=== PATIENT | female | born 1980 | race African-American/Black ===

== ENCOUNTER 2017-06-09 09:52 | Day surgery (SDC) | payer OTHER ==
--- NOTE | 2017-06-09 12:18 | Operative Note ---
Colonoscopy (Hal) Procedure date: 06/09/17 Date of : [birth year] Procedure:Colonoscopy Colonoscopy with cold biopsies and hemorrhoid band ligation Indications: Mrs. Jackson is a 36-year-old female who reportedly has ulcerative colitis and has been on Lialda. Her colonoscopy in [address] Samuel De León was described as spastic in the sigmoid colon with some boggy mucosa. The biopsies of this area showed nonspecific colitis. Dr. De León treated her with prednisone 5 mg every other day for nearly 2 years. She was also on Lialda and does state that this therapy normalized her bowel movements. She continues to have issues with diarrhea, bloating, gassiness and lower abdominal discomfort with some bowel urgency. This is often meal related. She had laparoscopic cholecystectomy in 2014. The patient reports no family history of colon cancer, colitis or Crohn's disease. She does not know her paternal biologic side. Performing Provider: Vinod Hong MD Referrring Provider: Diamante Vital M.D. Sedation: Fentanyl 200 mg IV/Versed 10 mg IV Procedure: Prior to the procedure, a history and physical exam was performed, and patient medications and allergies were reviewed. The risks and benefits of the procedure and the sedation options and risks were discussed with the patient. All questions were answered and informed consent was obtained. Patient identification and proposed procedure were verified by the physician and the nurse. The patient was placed in a left lateral decubitus position. Throughout the procedure, the patient's blood pressure, pulse, and oxygen saturations were monitored continuously. Findings: On digital rectal examination there was normal rectal tone. There were no external hemorrhoids. The colonoscope was introduced through the anal canal to the rectum and advanced to the cecum. The ileocecal valve and appendiceal orifice were identified. The scope was advanced a short distance into the ileum which appeared grossly normal. The scope was then withdrawn into the colon. The cecum, ascending and transverse colon and mucosa were grossly normal. Cold biopsies were taken from the RIGHT colon to rule out microscopic colitis. There were very mildly scattered diverticuli throughout the descending and sigmoid colon (LEFT colon). There was no evidence of colitis with normal mucosal pattern of the descending and sigmoid colon. There may have been some mild postural spasm. The rectum itself was normal. Upon retroflexion within the rectum there were grade 1-2 internal hemorrhoids with some active cryptitis. These were banded using 4 bands on 4 columns of hemorrhoids with excellent ligation effect. Impressions: 1. Very mild left-sided diverticulosis 2. Grade 1-2 internal hemorrhoids status post band ligation 4 Recommendations: The patient most likely has some cholerrheic diarrhea and IBSD/spastic diverticular disease. There is no evidence of colitis. I am going to discuss dietary measures, bile acid binding resin and FiberCon. I will also place her on an antispasmodic. I do not see that mesalamine is necessitated presently. She certainly does not need this or prednisone. I will follow up the biopsies. I will have her follow up for clinical improvement. Complications: None EBL (ml): 0 at 1219
[2017-06-09 14:20] VITALS: BP 116/65
== END 2017-06-09 13:30 | disposition home or self-care (01) ==
LOC: SDC 09:52
PROVIDERS: Internal Medicine Gastroenterology
PROC: 0DBF8ZX Excision of Right Large Intestine, Via Natural or Artificial Opening Endoscopic, Diagnostic (ICD-10-PCS; principal; 2017-06-09 11:00)
DX: K57.30 Diverticulosis of large intestine without perforation or abscess without bleeding (principal); K64.0 First degree hemorrhoids; K64.1 Second degree hemorrhoids